=== PATIENT | female | born 1945 | race Caucasian/White ===

== ENCOUNTER 2021-07-28 02:50 | Inpatient (IN) | payer MEDICARE, SELFPAY ==
[2021-07-28] VITALS (16 sets, daily range): BP systolic 118–190; BP diastolic 68–90; PULSE 59–130; RESP 14–24; TEMP 36.4–37; O2SAT 92–97; BMI 40.4; BMI 41.1
--- NOTE | 2021-07-28 02:51 | CTR_ITS ---
PROCEDURE INFORMATION: Exam: CT Head Without Contrast Exam date and time: 07/28/2021 2:51 AM Age: 76 years old Clinical indication: Speech disturbance; Slurred speech; Additional info: Stroke TECHNIQUE: Imaging protocol: Computed tomography of the head without contrast. Radiation optimization: All CT scans at this facility use at least one of these dose optimization techniques: automated exposure control; mA and/or kV adjustment per patient size (includes targeted exams where dose is matched to clinical indication); or iterative reconstruction. Other technique: STROKE PROTOCOL was implemented. COMPARISON: No relevant prior studies available. RADIATION DOSE METRICS: Total DLP (mGy-cm): 856.76 FINDINGS: Brain: No hemorrhage. Unremarkable white matter. Calcified extra-axial lesion at paramedian lower anterior cranial fossa measures 1.3 cm transverse by 1.1 cm superior inferior by 1.8 cm AP. Cerebral ventricles: No ventriculomegaly. Paranasal sinuses: Visualized sinuses are unremarkable. No fluid levels. Mastoid air cells: Visualized mastoid air cells are well aerated. Bones/joints: No acute findings. Soft tissues: Unremarkable. CT/CT head wo con* [id number] IMPRESSION: No acute intracranial abnormality. Extra-axial lesion at lower anterior cranial fossa favored to represent meningioma; short-term follow-up in 3 months can be helpful in establishing stability. ASSESSMENT: ASPECTS ([place] Stroke Program Early CT Score) is 10. Radiation Dose CTDIVOL = (mGy): DLP = 856.76 (mGy-cm)
--- NOTE | 2021-07-28 02:52 | ECG_ITS ---
[facility] Test Date: 2021-07-28 Pat Name: Teresita Morley Department: Room: Gender: Female Explosive Ordnance Specialist: : 1945 Requested By: Hellen Tamez Order Number: [id number] Reading MD: EDUARDO WHITING Measurements Intervals [place] Rate: 70 P: 200 [place]: 214 QRS: -74 QRSD: 230 T: 91 QT: 485 QTc: 524 Interpretive Statements ELECTRONIC VENTRICULAR PACEMAKER ABNORMAL RHYTHM ECG Compared to ECG 10/22/2015 11:09:17 AV dual-paced complex(es) or rhythm no longer present Electronically Signed On 07-28-2021 21:04:37 CDT by EDUARDO WHITING [email or web address] [id number]
--- NOTE | 2021-07-28 02:55 | CTR_ITS ---
PROCEDURE INFORMATION: Exam: CT Angiography Head With Contrast, Arteriography Exam date and time: 07/28/2021 2:55 AM Age: 76 years old Clinical indication: Speech disturbance; Slurred speech; Additional info: CVA TECHNIQUE: Imaging protocol: Computed tomography angiography of the head with contrast. Exam focused on the arteries. 3D rendering (Not supervised by radiologist): MIP and/or 3D reconstructed images were created by the technologist. Radiation optimization: All CT scans at this facility use at least one of these dose optimization techniques: automated exposure control; mA and/or kV adjustment per patient size (includes targeted exams where dose is matched to clinical indication); or iterative reconstruction. Contrast material: VISI; Contrast volume: 95 ml; Contrast route: INTRAVENOUS (IV); COMPARISON: CT head wo con* [id number] 07/28/2021 2:53 AM RADIATION DOSE METRICS: Total DLP (mGy-cm): 2285.66 FINDINGS: ANTERIOR CIRCULATION: Right internal carotid artery: Mild atheromatous change right internal carotid artery. Right middle cerebral artery: Focal moderate to marked narrowing and distal M1 segment right middle cerebral artery. Right anterior cerebral artery: Unremarkable. No occlusion or significant stenosis. No aneurysm. Left internal carotid artery: Mild atheromatous change left internal carotid artery. Left middle cerebral artery: Unremarkable. No occlusion or significant stenosis. No aneurysm. Left anterior cerebral artery: Unremarkable. No occlusion or significant stenosis. No aneurysm. POSTERIOR CIRCULATION: Right vertebral artery: Unremarkable. No occlusion or significant stenosis. No aneurysm. Left vertebral artery: Unremarkable. No occlusion or significant stenosis. No aneurysm. Basilar artery: Unremarkable. No occlusion or significant stenosis. No aneurysm. Right posterior cerebral artery: Unremarkable. No occlusion or significant stenosis. No aneurysm. Left posterior cerebral artery: Unremarkable. No occlusion or significant stenosis. No aneurysm. Brain: No definite mass, mass effect, or midline shift. Cerebral ventricles: No ventriculomegaly. Bones/joints: No acute findings. Soft tissues: Unremarkable. IMPRESSION: Focal moderate to marked narrowing distal M1 segment right middle cerebral artery. PROCEDURE INFORMATION: Exam: CT Angiography Neck With Contrast Exam date and time: 07/28/2021 2:55 AM Age: 76 years old Clinical indication: Speech disturbance; Slurred speech; Additional info: CVA TECHNIQUE: Imaging protocol: Computed tomography angiography of the neck with contrast. 3D rendering (Not supervised by radiologist): MIP and/or 3D reconstructed images were created by the technologist. Radiation optimization: All CT scans at this facility use at least one of these dose optimization techniques: automated exposure control; mA and/or kV adjustment per patient size (includes targeted exams where dose is matched to clinical indication); or iterative reconstruction. Contrast material: VISI; Contrast volume: 95 ml; Contrast route: INTRAVENOUS (IV); COMPARISON: CT head wo [facility]* [id number] 07/28/2021 2:53 AM RADIATION DOSE METRICS: Total DLP (mGy-cm): 2285.66 FINDINGS: Right common carotid artery: No stenosis. No dissection or occlusion. Right internal carotid artery: No stenosis of the extracranial segment. No dissection or occlusion. Right external carotid artery: No occlusion or stenosis of the origin. Left common carotid artery: No stenosis. No dissection or occlusion. Left internal carotid artery: No stenosis of the extracranial segment. No dissection or occlusion. Left external carotid artery: No occlusion or stenosis of the origin. Right vertebral artery: No stenosis. No dissection or occlusion. Left vertebral artery: No stenosis. No dissection or occlusion. Lymph nodes: Numerous symmetric mildly prominent lymph nodes with largest at left supraclavicular region measuring up to 1.7 cm short axis Soft tissues: Normal. No significant soft tissue swelling. Bones/joints: No acute fracture. CT/CT angio headneck* [id number] IMPRESSION: No high-grade stenosis or occlusive disease in cervical vasculature. Prominent lymph nodes raising consideration of neoplastic process or systemic inflammatory process. REFERENCES: NASCET CRITERIA. The degree of internal carotid artery stenosis is based on NASCET criteria. Normal is no stenosis. Mild is less than 50% stenosis. Moderate is 50-69% stenosis. Severe is 70% to 99% stenosis. Total occlusion is no detectable patent lumen. Radiation Dose CTDIVOL = (mGy): DLP = 2285.66~2285.66 (mGy-cm)
[2021-07-28] MEDS: iodixanol 320 mg/mL 100mL Btl IV (03:07)
--- NOTE | 2021-07-28 03:07 | W.ED.NEUROSD ---
HPI - Neuro Symptoms/Deficit General: Chief Complaint: Neuro Symptoms/Deficit Stated Complaint: STROKE ALERT Time Seen by Provider: 07/28/21 02:51 Source: patient and EMS Mode of arrival: EMS Limitations: no limitations History of Present Illness: HPI Narrative: -year-old female is here with possible stroke. Per EMS patient had laid down at 2200 and was completely normal then and when she woke up 1 she is having slurred speech. She does have slurred speech. Left-sided facial droop. No weakness noted in her extremities. Spoke to multiple people on timing has been difficult. Per EMS son at the scene said last known normal was 10 PM I spoke to someone on the phone and believes she went to bed at 1030 and he was pretty sure of 1030 but he states the range could have been from 10-11. I asked patient what time she went laid down and she is not exactly sure and states that she did not look at the clock. I believe her last known normal from what I can get from family is likely 1030. Denies hitting her head denies any headache. Denies any chest pain. Associated symptoms: Deny chest pain, headache(s), nausea or vomiting Review of Systems Const: Denies: fever(s), chills, body aches or change in appetite Eyes: Denies: blurry vision or eye discomfort ENMT: Denies: throat pain or dental pain Card: Denies: chest pain Resp: Denies: dyspnea GI: Denies: abdominal pain, nausea, vomiting or diarrhea : Denies: dysuria Musc: Denies: neck pain or back pain Skin/Breast: Denies: rash Neuro: Reports: Slurred speech present; Denies: headache(s) Psych: Denies: depression Gen/Lymph: Denies: easy bruising All/Imm: Denies: urticaria NIH stroke score NIHSS: Level Of Consciousness - 1a: 0 Level Of Consciousness Questions - 1b: Both Correct Level Of Consciousness Commands - 1c: Both Correct Best Gaze - 2: Normal Visual Terry - 3: No Visual Loss Facial Palsy - 4: Partial Paralysis Motor Arm Right - 5: No Drift Motor Arm Left - 5: No Drift Motor Leg Right - 6: No Drift Motor Leg Left - 6: No Drift Limb Ataxia - 7: Absent Sensory - 8: Normal Best Language - 9: Mild/Moderate Aphasia Dysarthia - 10: Mild/Moderate Dysarthia Extinction And Inattention - 11: 0 Score: Total Score: 4 Physical Exam Const: COMMON NORMALS: no acute distress, patient oriented x3, healthy appearing and alert ORIENTATION/CONSCIOUSNESS: Yes oriented to person, Yes oriented to place and Yes oriented to time HENMT: COMMON NORMALS: normocephalic and atraumatic HEAD & SCALP: normocephalic and atraumatic Eye: COMMON NORMALS: Equal, round and reactive pupils present and EOMs intact bilaterally PUPIL: Yes Equal, round and reactive pupils present Neck/C-Spine: COMMON NORMALS: full ROM and supple Chest: COMMONS NORMALS: normal inspection of the chest and normal palpation of entire chest wall Resp: COMMON NORMALS: normal respiratory effort, No retractions, No use of accessory muscles and clear to auscultation bilaterally AUSCULTATION: clear to auscultation bilaterally Cardio: COMMON NORMALS: regular rate, regular rhythm and No murmurs present (Cardio) RATE: regular rate RHYTHM: regular rhythm GI: COMMON NORMALS: Normal to inspection, nondistended, normoactive bowel sounds present, Soft to palpation, non-tender and no masses PALPATION: Yes Soft to palpation Extremity: COMMON NORMALS: normal to inspection and full ROM Neuro: COMMON NORMALS: patient oriented x3 and moves all extremities SENSORIUM/ORIENTATION: Yes alert, Yes oriented to person, Yes oriented to place and Yes oriented to time CRANIAL NERVES: Yes CN normal except as noted SPEECH: abnormal speech Psych: COMMON NORMALS: mental status grossly normal, Normal thought process present and cooperative THOUGHT PROCESS: Normal thought process present Skin: COMMON NORMALS: no rashes or lesions noted and no wounds GENERAL SKIN EXAM: no rashes or lesions noted Course Vital Signs: Vital signs: Vital Signs Temperature 97.9 F 07/28/21 02:52 Pulse Rate 62 07/28/21 04:02 Respiratory Rate 17 07/28/21 04:02 Blood Pressure 160/74 07/28/21 04:02 Pulse Oximetry 92 07/28/21 04:02 MDM - Neuro Symptoms/Deficit MDM Narrative: Medical decision making narrative: Presents here with CVA. There were multiple different times given for last known normal EMS and told us 10 son at the house I spoke to over the phone who did witness his mother going to bedside 1030 and I believe that that is most likely the time she went to bed. Patient's out of the window for TPA. She does have an NIH of 4. Of spoke to hospitalist along with neurologist and will admit. Lab Data: Labs: Lab Results 07/28/21 07/28/21 07/28/21 Range/Units 03:10 03:10 03:10 WBC 6.1 (4.0-10.0) 10^3/ uL RBC 4.75 (4.1-5.3) 10^6/u L Hgb 14.8 (11.5-15.3) g/dL Hct 43.0 (37.0-47.0) % MCV 90.5 (81-99) fl MCH 31.2 (28.0-34.0) pg MCHC 34.4 (30.0-36.0) g/dL RDW 12.0 L (12.1-15.1) % Plt Count 163 (130-400) 10^3/c mm MPV 9.2 (7.4-10.4) fL Neut % (Auto) 53.6 % Lymph % (Auto) 30.4 % [place] % (Auto) 12.7 % Eos % (Auto) 2.1 % Baso % (Auto) 0.5 % Neut # (Auto) 3.26 (1.8-7.7) 10^3/u L Lymph # (Auto) 1.9 (0.8-4.8) 10^3/u L [place] # (Auto) 0.8 (0.2-0.9) 10^3/u L Eos # (Auto) 0.1 (0.0-0.8) 10^3/u L Baso # (Auto) 0.0 (0.0-0.1) 10^3/u L Nucleated RBC % (a uto) 0 % Nucleated RBCs # 0.0 /100WBC PT 14.20 (12.1-14.9) SECO NDS INR 1.07 (0.8-1.2) APTT 26.4 (23.9-36.7) SECO NDS Sodium 133 L (136-145) mmol/L Potassium 4.2 (3.5-5.1) mmol/L Chloride 99 (98-107) mmol/L Carbon Dioxide 25 (22-29) mmol/L Anion Gap 13.2 (5-19) BUN 6 L (8-23) mg/dL Creatinine 0.6 (0.5-0.9) mg/dL GFR Calculation Not Reportable Glucose 125 H (65-115) mg/dL POC Glucose (70-110) mg/dL Calculated Osmolal ity 275 L (285-295) mOsm/k g Calcium 9.0 (8.5-10.5) mg/dL Total Bilirubin 0.6 (0.15-1.2) mg/dL AST 23 (0-32) U/L ALT 32 (0-33) U/L Alkaline Phosphata se 105 (35-105) IU/L Total Protein 6.3 L (6.6-8.7) g/dL Albumin 3.7 (3.5-5.2) g/dL Globulin 2.6 (1.3-4.6) g/dL Urine Color (Yellow) Urine Appearance (CLEAR) Urine pH (5-7) Ur Specific Gravit y (1.005-1.030) Urine Protein (Negative) Urine Glucose (UA) (Normal) Urine Ketones (Negative) Urine Blood (Negative) Urine Nitrate (Negative) Urine Bilirubin (Negative) Prot Sulfosalicyli c Acd (Negative) Urine Urobilinogen (Negative) mg/dL Ur Leukocyte Mary [place] (Negative) 07/28/21 07/28/21 Range/Units 03:23 03:30 WBC (4.0-10.0) 10^3/ uL RBC (4.1-5.3) 10^6/u L Hgb (11.5-15.3) g/dL Hct (37.0-47.0) % MCV (81-99) fl MCH (28.0-34.0) pg MCHC (30.0-36.0) g/dL RDW (12.1-15.1) % Plt Count (130-400) 10^3/c mm MPV (7.4-10.4) fL Neut % (Auto) % Lymph % (Auto) % [place] % (Auto) % Eos % (Auto) % Baso % (Auto) % Neut # (Auto) (1.8-7.7) 10^3/u L Lymph # (Auto) (0.8-4.8) 10^3/u L [place] # (Auto) (0.2-0.9) 10^3/u L Eos # (Auto) (0.0-0.8) 10^3/u L Baso # (Auto) (0.0-0.1) 10^3/u L Nucleated RBC % (a uto) % Nucleated RBCs # /100WBC PT (12.1-14.9) SECO NDS INR (0.8-1.2) APTT (23.9-36.7) SECO NDS Sodium (136-145) mmol/L Potassium (3.5-5.1) mmol/L Chloride (98-107) mmol/L Carbon Dioxide (22-29) mmol/L Anion Gap (5-19) BUN (8-23) mg/dL Creatinine (0.5-0.9) mg/dL GFR Calculation Glucose (65-115) mg/dL POC Glucose 118 H (70-110) mg/dL Calculated Osmolal ity (285-295) mOsm/k g Calcium (8.5-10.5) mg/dL Total Bilirubin (0.15-1.2) mg/dL AST (0-32) U/L ALT (0-33) U/L Alkaline Phosphata se (35-105) IU/L Total Protein (6.6-8.7) g/dL Albumin (3.5-5.2) g/dL Globulin (1.3-4.6) g/dL Urine Color Colorless (Yellow) Urine Appearance Clear (CLEAR) Urine pH 8 H (5-7) Ur Specific Gravit y 1.005 (1.005-1.030) Urine Protein Neg (Negative) Urine Glucose (UA) Norm (Normal) Urine Ketones Negative (Negative) Urine Blood Neg (Negative) Urine Nitrate Negative (Negative) Urine Bilirubin Neg (Negative) Prot Sulfosalicyli c Acd Negative (Negative) Urine Urobilinogen Norm (Negative) mg/dL Ur Leukocyte Mary a[place] Negative (Negative) Imaging Data^: CT Head: Attestation: I personally reviewed and interpreted this imaging study as follows: Radiologist's impression: [address] [address] [address] Scan Report Signed Patient: Teresita Morley Unit [facility]: [id number] : 1945 [id number] Age/Sex: 76 / F ADM Date: 07/28/21 Loc: ER Room/Bed: Attending Dr: Ordering Provider/Ordering MD: Hellen Tamez MD Date of Service: 07/28/21 Procedure(s): CT head wo con* [id number] Accession Number(s): [id number] Report Number: [id number] PROCEDURE INFORMATION: Exam: CT Head Without Contrast Exam date and time: 07/28/2021 2:51 AM Age: 76 years old Clinical indication: Speech disturbance; Slurred speech; Additional info: Stroke TECHNIQUE: Imaging protocol: Computed tomography of the head without contrast. Radiation optimization: All CT scans at this facility use at least one of these dose optimization techniques: automated exposure control; mA and/or kV adjustment per patient size (includes targeted exams where dose is matched to clinical indication); or iterative reconstruction. Other technique: STROKE PROTOCOL was implemented. COMPARISON: No relevant prior studies available. RADIATION DOSE METRICS: Total DLP (mGy-cm): 856.76 FINDINGS: Brain: No hemorrhage. Unremarkable white matter. Calcified extra-axial lesion at paramedian lower anterior cranial fossa measures 1.3 cm transverse by 1.1 cm superior inferior by 1.8 cm AP. Cerebral ventricles: No ventriculomegaly. Paranasal sinuses: Visualized sinuses are unremarkable. No fluid levels. Mastoid air cells: Visualized mastoid air cells are well aerated. Bones/joints: No acute findings. Soft tissues: Unremarkable. CT/CT head wo con* [id number] IMPRESSION: No acute intracranial abnormality. Extra-axial lesion at lower anterior cranial fossa favored to represent meningioma; short-term follow-up in 3 months can be helpful in establishing stability. ASSESSMENT: ASPECTS ([place] Stroke Program Early CT Score) is 10. Radiation Dose CTDIVOL = (mGy): DLP = 856.76 (mGy-cm) Dictated By: Christoph Bethea MD Signed By: Christoph Bethea MD Signed Date/Time: 07/28/21314 DD/ [address]: Attestation: I personally reviewed and interpreted this imaging study as follows: Radiologist's impression: [address] [place] [id number] [address] Scan Report Signed Patient: Teresita Morley Unit #: [id number] : 1945 Age/Sex: 76 / F ADM Date: 07/28/21 Loc: ER Room/Bed: Attending Dr: Ordering Provider/Ordering MD: Hellen Tamez MD Date of Service: 07/28/21 Procedure(s): CT angio headneck* [id number] Accession Number(s): [id number] Report Number: [id number] PROCEDURE INFORMATION: Exam: CT Angiography Head With Contrast, Arteriography Exam date and time: 07/28/2021 2:55 AM Age: 76 years old Clinical indication: Speech disturbance; Slurred speech; Additional info: CVA TECHNIQUE: Imaging protocol: Computed tomography angiography of the head with contrast. Exam focused on the arteries. 3D rendering (Not supervised by radiologist): MIP and/or 3D reconstructed images were created by the technologist. Radiation optimization: All CT scans at this facility use at least one of these dose optimization techniques: automated exposure control; mA and/or kV adjustment per patient size (includes targeted exams where dose is matched to clinical indication); or iterative reconstruction. Contrast material: VISI; Contrast volume: 95 ml; Contrast route: INTRAVENOUS (IV); COMPARISON: CT head wo con* [id number] 07/28/2021 2:53 AM RADIATION DOSE METRICS: Total DLP (mGy-cm): 2285.66 FINDINGS: ANTERIOR CIRCULATION: Right internal carotid artery: Mild atheromatous change right internal carotid artery. Right middle cerebral artery: Focal moderate to marked narrowing and distal M1 segment right middle cerebral artery. Right anterior cerebral artery: Unremarkable. No occlusion or significant stenosis. No aneurysm. Left internal carotid artery: Mild atheromatous change left internal carotid artery. Left middle cerebral artery: Unremarkable. No occlusion or significant stenosis. No aneurysm. Left anterior cerebral artery: Unremarkable. No occlusion or significant stenosis. No aneurysm. POSTERIOR CIRCULATION: Right vertebral artery: Unremarkable. No occlusion or significant stenosis. No aneurysm. Left vertebral artery: Unremarkable. No occlusion or significant stenosis. No aneurysm. Basilar artery: Unremarkable. No occlusion or significant stenosis. No aneurysm. Right posterior cerebral artery: Unremarkable. No occlusion or significant stenosis. No aneurysm. Left posterior cerebral artery: Unremarkable. No occlusion or significant stenosis. No aneurysm. Brain: No definite mass, mass effect, or midline shift. Cerebral ventricles: No ventriculomegaly. Bones/joints: No acute findings. Soft tissues: Unremarkable. IMPRESSION: Focal moderate to marked narrowing distal M1 segment right middle cerebral artery. PROCEDURE INFORMATION: Exam: CT Angiography Neck With Contrast Exam date and time: 07/28/2021 2:55 AM Age: 76 years old Clinical indication: Speech disturbance; Slurred speech; Additional info: CVA TECHNIQUE: Imaging protocol: Computed tomography angiography of the neck with contrast. 3D rendering (Not supervised by radiologist): MIP and/or 3D reconstructed images were created by the technologist. Radiation optimization: All CT scans at this facility use at least one of these dose optimization techniques: automated exposure control; mA and/or kV adjustment per patient size (includes targeted exams where dose is matched to clinical indication); or iterative reconstruction. Contrast material: VISI; Contrast volume: 95 ml; Contrast route: INTRAVENOUS (IV); COMPARISON: CT head wo con* [id number] 07/28/2021 2:53 AM RADIATION DOSE METRICS: Total DLP (mGy-cm): 2285.66 FINDINGS: Right common carotid artery: No stenosis. No dissection or occlusion. Right internal carotid artery: No stenosis of the extracranial segment. No dissection or occlusion. Right external carotid artery: No occlusion or stenosis of the origin. Left common carotid artery: No stenosis. No dissection or occlusion. Left internal carotid artery: No stenosis of the extracranial segment. No dissection or occlusion. Left external carotid artery: No occlusion or stenosis of the origin. Right vertebral artery: No stenosis. No dissection or occlusion. Left vertebral artery: No stenosis. No dissection or occlusion. Lymph nodes: Numerous symmetric mildly prominent lymph nodes with largest at left supraclavicular region measuring up to 1.7 cm short axis Soft tissues: Normal. No significant soft tissue swelling. Bones/joints: No acute fracture. CT/CT angio headneck* [id number] IMPRESSION: No high-grade stenosis or occlusive disease in cervical vasculature. Prominent lymph nodes raising consideration of neoplastic process or systemic inflammatory process. REFERENCES: NASCET CRITERIA. The degree of internal carotid artery stenosis is based on NASCET criteria. Normal is no stenosis. Mild is less than 50% stenosis. Moderate is 50-69% stenosis. Severe is 70% to 99% stenosis. Total occlusion is no detectable patent lumen. Radiation Dose CTDIVOL = (mGy): DLP = 2285.66 2285.66 (mGy-cm) Dictated By: Christoph Bethea MD Signed By: Christoph Bethea MD Signed Date/Time: 07/28/21324 DD/ 3 EKG Data^: EKG 1: Attestation: I personally reviewed and interpreted this EKG as follows: EKG interpretation date: 07/28/21 EKG interpretation time: 03:14 Interpretation: paced rhythm hr [address] or t wave abnormalities qrs 230 qtc 505 Discharge Plan Discharge Patient Disposition: Admitted As Inpatient Clinical Impression: Cerebrovascular accident Qualifiers: CVA mechanism: unspecified Qualified Code(s): I63.9 - Cerebral infarction, unspecified Condition: Stable Coding Level of Care Code ED Occupational Health Nurse Manager for Chg Fwd Exam Comprehensive
[2021-07-28 03:16] LABS: Basophils % 0.5 %; Eosinophils # 0.1 10^3/uL (0.0-0.8); Eosinophils % 2.1 %; Hemoglobin 14.8 g/dL (11.5-15.3); Lymphocytes # 1.9 10^3/uL (0.8-4.8); Lymphocytes % 30.4 %; Mean Corpuscular HGB Conc 34.4 g/dL (30.0-36.0); Mean Corpuscular Hemoglobin 31.2 pg (28.0-34.0); Mean Corpuscular Volume 90.5 fl (81-99); Mean Platelet Volume 9.2 fL (7.4-10.4); Monocytes # 0.8 10^3/uL (0.2-0.9); Monocytes % 12.7 %; Neutrophils # 3.26 10^3/uL (1.8-7.7); Neutrophils % 53.6 %; Nucleated Red Blood Cells % 0 %; Platelet Count 163 10^3/cmm (130-400); Red Blood Count 4.75 10^6/uL (4.1-5.3); White Blood Count 6.1 10^3/uL (4.0-10.0)
[2021-07-28 03:26] LABS: Glucose Point of Care 118 mg/dL (70-110)
[2021-07-28 03:28] LABS: INR 1.07 (0.8-1.2)
[2021-07-28 03:29] LABS: Partial Thromboplastin Time 26.4 SECONDS (23.9-36.7)
[2021-07-28 03:33] LABS: Alanine Aminotransferase 32 U/L (0-33); Albumin Level 3.7 g/dL (3.5-5.2); Alkaline Phosphatase 105 IU/L (35-105); Anion Gap 13.2 (5-19); Aspartate Amino Transferase 23 U/L (0-32); Blood Urea Nitrogen 6 mg/dL (8-23); Carbon Dioxide 25 mmol/L (22-29); Chloride 99 mmol/L (98-107); Globulin 2.6 g/dL (1.3-4.6); Glucose 125 mg/dL (65-115); Osmolality Calculated 275 mOsm/kg (285-295); Potassium 4.2 mmol/L (3.5-5.1); Sodium 133 mmol/L (136-145); Total Bilirubin 0.6 mg/dL (0.15-1.2); Total Protein 6.3 g/dL (6.6-8.7)
[2021-07-28 03:34] LABS: Add Urine Microscopic? NO; Charge for UA Resulting for Rev
[2021-07-28 03:41] LABS: Bilirubin Urine Neg (Negative); Blood Urine Neg (Negative); Glucose Urine UA Norm (Normal); Ketones Urine Negative (Negative); Leukocyte Esterase Urine Negative (Negative); Nitrate Urine Negative (Negative); Protein Urine Neg (Negative); Specific Gravity, Urine 1.005 (1.005-1.030); Urine Appearance Clear (CLEAR); Urine Color Colorless (Yellow); Urobilinogen Urine Norm (Negative); pH Urine 8 (5-7)
[2021-07-28 03:42] LABS: Sulfosalicylic Acid Urine Negative (Negative)
[2021-07-28] MEDS: aspirin 81 mg Chew Tablet 324 MG PO (03:43)
[2021-07-28] MEDS: sodium chloride 0.9% 1,000 ML 999 ML IV (03:43)
--- NOTE | 2021-07-28 04:20 | P.HP_ITS ---
Providers/Chief Complaint Admitting Physician: Erma Hackett MD Primary Care Provider: Dr John Espinoza Chief Complaint: STROKE ALERT History of Present Illness Terestia Morley is a 76 year old female who presented to the emergency room with chief complaint of slurred speech, word finding difficulties and left-sided facial droop. She had been last known at baseline sometime between 10 and 11:00 in the evening, most likely around 1030 when she went to bed. Something awakened her from sleep and she was having difficulty with her words and was not speaking clearly. She was also noted to have a left-sided facial droop. She was brought in by EMS. On arrival here she was outside of the window for TPA. Initial NIH score was 4. CT of the head did not show acute bleed. CTA of the head neck was done and did not show any intervenable obstructive process. She continued to have the same symptoms in the emergency room without any improvement however at the time of my evaluation, her speech was starting to improve and was easy to understand. She still had a little bit of a left-sided facial droop. In talking with her she has had multiple episodes the past week or so of waking up at night and things not being right. She had a bit of a headache and some dizziness a couple of nights ago as well as worsening difficulty swallowing. She describes increased difficulty swallowing over the last month or 2 but some of that is attributable to severe reflux. She frequently has headaches. She does have known hypertension and is on antihypertensive medications. It sounds like she has a history of atrial fibrillation with pacemaker as she reports that she is on Rythmol. She does not, however, recognize the term atrial fibrillation. She denies any history of previous strokes or coronary artery disease. She describes borderline diabetes with low blood sugars and thyroid problems. She also has sleep apnea for which she is on BiPAP and has not been using it lately due to concerns over recall. She follows with a specialist in [place]. She reports having had a stress test about a month ago that was unremarkable. She does not chronically take aspirin because she often chooses not to due to her stomach issues. She does not smoke. ED provider discussed the case with neurology who agreed to see her in consultation. She is being admitted for further evaluation and treatment. Of note she has an allergy to statins, describes being tried on multiple diffe rent statins with varied reactions from headaches to body aches and the like regardless of dosing. Review of Systems Narrative: Cardiology [place] Dr [place] Electrophysiology [place] Dr [place] blood sugar doctor [place] Recently referred for something on stomach that might need biopsied (seen on plain xray from description), but told not needed at referral appointment Const: Denies: fever(s) or chills Eyes: Denies: change in vision ENMT: Denies: throat pain or nasal congestion Card: Reports: palpitations (When she awakened from sleep) and other (stress test in [place] normal within last 1-2 months); Denies: chest pain, edema or syncope Resp: Denies: dyspnea, productive cough or non-productive cough GI: Reports: abdominal pain (had some study by pcp, referred for a biospy but told not necessary ), nausea, dysphagia and heartburn; Denies: vomiting, diarrhea, constipation, hematochezia or melena : Reports: urinary incontinence; Denies: difficulty voiding Musc: Reports: extremity pain; Denies: joint swelling or joint redness Skin/Breast: Denies: rash or pruritus Neuro: Reports: headache(s), dizziness, confusion, Slurred speech present and difficulty communicating thoughts; Denies: numbness in extremities, weakness in extremities, sensory changes or difficulty walking Psych: Denies: anxiety or depression Gen/Lymph: Denies: easy bruising or easy bleeding Medications/Allergies Home Medications Medication Instructions Recorded Confirmed Last Taken Type BP pill DAILY@12 07/28/21 Unknown History aspirin [Aspirin Low Dose] 81 mg PO DAILY 07/28/21 Unknown History famotidine [Pepcid] 20 mg PO BID 07/28/21 Unknown History furosemide [Lasix] 20 mg PO DAILY 07/28/21 Unknown History levothyroxine 175 mcg PO DAILY 07/28/21 Unknown History metoprolol tartrate 50 mg PO BID 07/28/21 Unknown History propafenone [Rythmol] 225 mg PO BID 07/28/21 Unknown History Allergies Allergy/AdvReac Type Severity Reaction Status Date / Time atorvastatin Allergy Unknown Verified 07/28/21 03:45 Penicillins Allergy Unknown Verified 07/28/21 03:08 Additional Medication Information Patient reports that she is on Rythmol twice per day which she gets from an assisted program, metoprolol twice a day, levothyroxine daily, Pepcid bid, lasix daily, another bp pill daily and irregular aspirin therapy PFSH Acute PFSH: Medical History (Updated 07/28/21 @ 07:25 by Erma Hackett MD) Arrhythmia on rythmol and has pacemaker but does not recognize terms atrial fibrillation or atrial flutter Body mass index (BMI) of 40.1 to 44.9 in adult Borderline diabetes with episodes of hypoglycemia 4 para 3 with 1 miscarriage Hyperlipidemia Hypertension Hypothyroidism Pacemaker Sleep apnea Surgical History (Updated 07/28/21 @ 07:16 by Erma Hackett MD) History of appendectomy History of back surgery History of cholecystectomy History of hysterectomy Family History (Updated 07/28/21 @ 07:20 by Erma Hackett MD) Other Hypertension Denies family history of CAD (coronary artery disease) Stroke Social History (Updated 07/28/21 @ 07:17 by Erma Hackett MD) Smoking and tobacco status: never smoked Alcohol intake: never Substance/Drug Use: never Household members: spouse Marital status: Marital status details: 57 years Vitals/I&O/Wt Last Vital Signs Temp 97.9 F 07/28/21 02:52 Pulse 62 07/28/21 04:02 Resp 17 07/28/21 04:02 BP 160/74 07/28/21 04:02 Pulse Ox 92 07/28/21 04:02 Weight last 48 hrs Weight 113.761 kg Physical Exam Narrative: EXAM NARRATIVE: Constitutional: Awake and alert, cooperative HEENT: Left-sided facial droop persist though not as prominent as described by ER provider, extraocular movements are intact, pupils are equally reactive, no gross visual field defects, nasopharynx is clear, there is reddish discoloration on the tip of her nose and a mole on the left nares, tongue protrusion is midline but slow, dry mucous membranes Neck: Large but supple Respiratory: Clear to auscultation bilaterally Cardiovascular: Regular rhythm, distant heart sounds, no JVD Abdomen: Soft, nontender, positive bowel sounds : Harris catheter noted Extremities: No pitting edema Skin: Dry skin Neuro: Speech is predominantly understandable although has to pause at times to think about the words that she is trying to recall, weak shoulder shrug bilaterally, handgrip is equal, strength is equal at both feet, toes are equivocal Psych: Calm, normal affect Urinary Catheter Management^: Harris: Cath Placed During This Visit: yes Urinary Catheter Date of Insertion: 07/28/21 Urinary Catheter Time of Insertion: 03:33 Data : 07/28/21 03:10 07/28/21 03:10 Other data: Laboratory Results WBC 6.1 10^3/uL (4.0-10.0) 07/28/21 03:10 RBC 4.75 10^6/uL (4.1-5.3) 07/28/21 03:10 Hgb 14.8 g/dL (11.5-15.3) 07/28/21 03:10 Hct 43.0 % (37.0-47.0) 07/28/21 03:10 MCV 90.5 fl (81-99) 07/28/21 03:10 MCH 31.2 pg (28.0-34.0) 07/28/21 03:10 MCHC 34.4 g/dL (30.0-36.0) 07/28/21 03:10 RDW 12.0 % (12.1-15.1) L 07/28/21 03:10 Plt Count 163 10^3/cmm (130-400) 07/28/21 03:10 MPV 9.2 fL (7.4-10.4) 07/28/21 03:10 Neut % (Auto) 53.6 % 07/28/21 03:10 Lymph % (Auto) 30.4 % 07/28/21 03:10 [place] % (Auto) 12.7 % 07/28/21 03:10 Eos % (Auto) 2.1 % 07/28/21 03:10 Baso % (Auto) 0.5 % 07/28/21 03:10 Neut # (Auto) 3.26 10^3/uL (1.8-7.7) 07/28/21 03:10 Lymph # (Auto) 1.9 10^3/uL (0.8-4.8) 07/28/21 03:10 [place] # (Auto) 0.8 10^3/uL (0.2-0.9) 07/28/21 03:10 Eos # (Auto) 0.1 10^3/uL (0.0-0.8) 07/28/21 03:10 Baso # (Auto) 0.0 10^3/uL (0.0-0.1) 07/28/21 03:10 Nucleated RBC % (auto) 0 % 07/28/21 03:10 Nucleated RBCs # 0.0 /100WBC 07/28/21 03:10 PT 14.20 SECONDS (12.1-14.9) 07/28/21 03:10 INR 1.07 (0.8-1.2) 07/28/21 03:10 APTT 26.4 SECONDS (23.9-36.7) 07/28/21 03:10 Sodium 133 mmol/L (136-145) L 07/28/21 03:10 Potassium 4.2 mmol/L (3.5-5.1) 07/28/21 03:10 Chloride 99 mmol/L (98-107) 07/28/21 03:10 Carbon Dioxide 25 mmol/L (22-29) 07/28/21 03:10 Anion Gap 13.2 (5-19) 07/28/21 03:10 BUN 6 mg/dL (8-23) L 07/28/21 03:10 Creatinine 0.6 mg/dL (0.5-0.9) 07/28/21 03:10 GFR Calculation Not Reportable 07/28/21 03:10 Glucose 125 mg/dL (65-115) H 07/28/21 03:10 POC Glucose 118 mg/dL (70-110) H 07/28/21 03:23 Calculated Osmolality 275 mOsm/kg (285-295) L 07/28/21 03:10 Calcium 9.0 mg/dL (8.5-10.5) 07/28/21 03:10 Total Bilirubin 0.6 mg/dL (0.15-1.2) 07/28/21 03:10 AST 23 U/L (0-32) 07/28/21 03:10 ALT 32 U/L (0-33) 07/28/21 03:10 Alkaline Phosphatase 105 IU/L (35-105) 07/28/21 03:10 Total Protein 6.3 g/dL (6.6-8.7) L 07/28/21 03:10 Albumin 3.7 g/dL (3.5-5.2) 07/28/21 03:10 Globulin 2.6 g/dL (1.3-4.6) 07/28/21 03:10 Urine Color Colorless (Yellow) 07/28/21 03:30 Urine Appearance Clear (CLEAR) 07/28/21 03:30 Urine pH 8 (5-7) H 07/28/21 03:30 Ur Specific [place] 1.005 (1.005-1.030) 07/28/21 03:30 Urine Protein Neg (Negative) 07/28/21 03:30 Urine Glucose (UA) Norm (Normal) 07/28/21 03:30 Urine Ketones Negative (Negative) 07/28/21 03:30 Urine Blood Neg (Negative) 07/28/21 03:30 Urine Nitrate Negative (Negative) 07/28/21 03:30 Urine Bilirubin Neg (Negative) 07/28/21 03:30 Prot Sulfosalicylic Acd Negative (Negative) 07/28/21 03:30 Urine Urobilinogen Norm mg/dL (Negative) 07/28/21 03:30 Ur Leukocyte Esterase Negative (Negative) 07/28/21 03:[address] 07/28/21 02:51 IMPRESSION: No acute intracranial abnormality. Extra-axial lesion at lower anterior cranial fossa favored to represent meningioma; short-term follow-up in 3 months can be helpful in establishing stability. ASSESSMENT: ASPECTS ([place] Stroke Program Early CT Score) is 10. Radiation Dose CTDIVOL = (mGy): DLP = 856.76 (mGy-cm) Head/Neck CTA 07/28/21 02:55 IMPRESSION: No high-grade stenosis or occlusive disease in cervical vasculature. Prominent lymph nodes raising consideration of neoplastic process or systemic inflammatory process. REFERENCES: NASCET CRITERIA. The degree of internal carotid artery stenosis is based on NASCET criteria. Normal is no stenosis. Mild is less than 50% stenosis. Moderate is 50-69% stenosis. Severe is 70% to 99% stenosis. Total occlusion is no detectable patent lumen. Radiation Dose CTDIVOL = (mGy): DLP = 2285.66~2285.66 (mGy-cm) A&P Assessment and plan (1) Cerebrovascular accident: Associated with dysarthria, word finding difficulties and left-sided facial droop. Initial NIH score of 4. Presented outside of window for TPA. Status: Acute Qualifiers: CVA mechanism: unspecified Qualified Code(s): I63.9 - Cerebral infarction, unspecified (2) Arrhythmia: Based on the fact that she is chronically on Rythmol and beta-blockade, suspect that she has a history of atrial fibrillation/flutter. She had syncopal episodes that led to pacemaker placement and historically sounds like a tachybradycardia syndrome. Not on chronic anticoagulation and does not describe being on anticoagulation previously however. Follows with cardiology in [place] Status: Chronic Qualifiers: Arrhythmia type: unspecified cardiac arrhythmia Qualified Code(s): I49.9 - Cardiac arrhythmia, unspecified (3) Pacemaker at end of battery life: According to patient, paced rhythm noted on telemetry and EKG Status: Chronic (4) Sleep apnea: Chronically on BiPAP at home but is not consistent with using it particularly of late with recalls and not knowing what to do with her own device. Does make me wonder if that is not contributing to her waking up frequently at night with issues lately. Status: Chronic Qualifiers: Sleep apnea type: obstructive Qualified Code(s): G47.33 - Obstructive sleep apnea (adult) (pediatric) (5) Hypertension: Currently with elevated blood pressures in the setting of acute cerebrovascular event where we are allowing permissive hypertension Status: Chronic Qualifiers: Hypertension type: essential hypertension Qualified Code(s): I10 - Essential (primary) hypertension (6) Hyperlipidemia: Reports intolerance to statin therapy Status: Chronic Qualifiers: Hyperlipidemia type: unspecified Qualified Code(s): E78.5 - Hyperlipidemia, unspecified (7) Borderline diabetes: By her description associated with intermittent episodes of hypoglycemia Status: Chronic (8) Hypothyroidism: Chronically on levothyroxine replacement Status: Chronic Qualifiers: Hypothyroidism type: unspecified Qualified Code(s): E03.9 - Hypothyroidism, unspecified (9) Body mass index (BMI) of 40.1 to 44.9 in adult: Status: Chronic Additional A&P Information Inpatient admission Serial neuro exams Not a candidate for MRI secondary to pacemaker Telemetry monitoring See if we can get information about her pacemaker particularly the report that it is at end of battery life or near that Request records from primary care provider and/or technology integration specialist to get a bit more accurate information in terms of medication and past history in particular as relates to arrhythmia Echocardiogram Aspirin and Plavix Permissive hypertension for now We will continue half usual dose of beta-blockade Continue a lower dose of rythmol until can clarify dosing Hold Lasix and an unknown blood pressure pill currently Check lipid panel and A1c PT, OT, speech therapy BiPAP with sleep Monitor blood sugars Continue home levothyroxine Supportive care otherwise Consultants: Neurology Pending/ordered tests/procedures to follow: Lipid panel, A1c, echocardiogram Lines/tubes: Harris catheter was placed in the emergency room, will remove pending PT evaluation later today DVT prophylaxis: Lovenox Plans, findings and concerns discussed with patient and she was given an opportunity to ask questions. Anticipated Disposition: Home, plus or minus outpatient or home health therapies depending on clinical course Code Status: Full code Attestations Medical Necessity Statement*: Anticipated stay greater than two midnights in a patient presenting with acute neurological symptoms. She describes intermittent less prolonged symptoms lately. She presented outside of window tonight for TPA. After a couple of hours she has started to show some improvement but continues to have word finding difficulties and difficulty swallowing. Plans are as noted above. She has not had previous cerebrovascular event. Coding Level of Care Code Acute Casino Host for Leigha Nolen Diagnoses Cerebrovascular accident I63.9 CVA mechanism: unspecified Arrhythmia I49.9 Arrhythmia type: unspecified cardiac arrhythmia Pacemaker at end of battery life Z45.010 Sleep apnea G47.33 Sleep apnea type: obstructive Hypertension I10 Hypertension type: essential hypertension Hyperlipidemia E78.5 Hyperlipidemia type: unspecified Borderline diabetes R73.03 Hypothyroidism E03.9 Hypothyroidism type: unspecified Body mass index (BMI) of 40.1 to 44.9 in adult Z68.41
--- NOTE | 2021-07-28 06:22 | PC.NURSE ---
I reported low pulse 59 to nurse
[2021-07-28 06:55] LABS: Glucose Point of Care 94 mg/dL (70-110)
--- NOTE | 2021-07-28 08:59 | PC.CHAP ---
Pastoral Care Encounter/Spiritual Assessment Type of Contact [] Declined pond supervisor visit [] Patient/Family/Request visit [] Outpatient visit [] Follow-up visit [] Physician referral [] Code/Alert [x] Routine visit [] Staff referral [] Actively dying [] Patient sleeping [] Family support [] [] Out of room [] Palliative care [] [] Receiving care in room [] Pre-surgical visit [] Trauma [] Long length of stay [] ICU visit [] Other: Relational/Emotional Strength [x] Patient feels connected with others/family/visitors/staff [] Distress [] Loneliness/isolation [] Abandonment Spirituality of Patient [x Person of Shakira [] Attends Spiritism of their Shakira [x] Believes in Prayer [] Reads Bible or Episcopal materials [] There are Spiritual issues to be addressed Director Marketing Communications Interventions [x] Prayer [x] Active listening [x] Non-anxious presence [] Spiritual/emotional support [] Crisis/trauma care [] Spiritual counseling [] Bereavement support [] Provided bereavement packet [] Provided Bible/devotional materials [] Provided toy/stuffed animal, coloring book to patient or family member [] Provided Communion [] Anointing/[place] [] Salvation [] Completed spiritual assessment [] Other: Impact on Illness or Injury [] Angry [] Fearful [] Anxious [] Often cries [] Exhaustion [] Unable to work [] Unable to attend scientologist [] Unable to walk/stand [] Unable to read [] Unable to drive [] Unable to eat/drink [] Unable to sleep [] Unable to be with family [] Patient intubated [] Other: Summary patient feeling much better today and talking better Time spent with patient 15 min
[2021-07-28] MEDS: famotidine 20 mg Tablet PO ×2 (10:26→17:19)
[2021-07-28] MEDS: clopidogrel 75 mg Tablet PO (10:27)
[2021-07-28] MEDS: propafenone 150 mg Tablet PO ×2 (10:27→22:10)
[2021-07-28] MEDS: metoprolol tartrate 25 mg Tablet PO ×2 (10:27→22:10)
[2021-07-28] MEDS: fenofibrate 145 mg Tablet PO (10:27)
[2021-07-28] MEDS: enoxaparin 40 mg/0.4 mL Syringe SUBCUT (10:27)
[2021-07-28] MEDS: levothyroxine 175 mcg Tablet PO (10:27)
[2021-07-28 12:05] LABS: Glucose Point of Care 180 mg/dL (70-110)
--- NOTE | 2021-07-28 13:53 | PC.OT ---
OT EVALUATION ORDERS RECEIVED. OT SCREEN COMPLETED. PATIENT DEMONSTRATES NO DEFICITS IN ADL PERFORMANCE, UE WEAKNESS OR FURTHER NEED FOR SKILLED OT.
--- NOTE | 2021-07-28 14:11 | P.PN_ITS ---
Subjective Subjective: Interval history: She feels she is doing better today in terms of her speech. Reports has had some difficulty swallowing her pills for about a week. Denies overt choking or shortness of breath. But had some associated cough. Vitals/I&O/Wt Last Vital Signs Temp 98.4 F 07/28/21 11:12 Pulse 60 07/28/21 11:12 Resp 16 07/28/21 11:12 BP 118/68 07/28/21 11:12 Pulse Ox 95 07/28/21 11:12 07/27/21 07/28/21 07/28/21 22:59 06:59 14:59 Intake Total 1000 / 1000 180 / 180 Output Total 1800 / 1800 Balance 1000 / 1000 -1620 / -1620 Weight last 48 hrs Weight 112.037 kg Weight 113.761 kg Physical Exam Const: COMMON NORMALS: no acute distress and patient oriented x3 OTHER: Awake, alert, pleasant, conversant. HENMT: COMMON NORMALS: oropharynx normal Neck/C-Spine: COMMON NORMALS: no meningeal signs and no JVD Resp: COMMON NORMALS: normal respiratory effort and clear to auscultation bilaterally AUSCULTATION: clear to auscultation bilaterally Cardio: COMMON NORMALS: no JVD, regular rhythm, S1 normal heart sound present, S2 normal heart sound present and No murmurs present (Cardio) RHYTHM: regular rhythm HEART SOUNDS: S1 normal heart sound present and S2 normal heart sound present GI: COMMON NORMALS: Normal to inspection, nondistended, normoactive bowel sounds present, Soft to palpation and non-tender PALPATION: Yes Soft to palpation Extremity: COMMON NORMALS: no joint enlargement and no pedal edema Neuro: COMMON NORMALS: patient oriented x3 and moves all extremities MENINGEAL SIGNS: Yes no meningeal signs COORDINATION/BALANCE: [id number] test normal (although slow) SPEECH: abnormal speech Details: slurred (Minimal if any dysarthria.) and expressive aphasia (minimal aphasia) SENSORY EXAM: Yes Normal double simultaneous stimulation for sensation; No sensory level loss detected MOTOR EXAM: 5/5 motor strength present throughout and Pronator motor function not present COORDINATION: [id number] test normal (although slow) OTHER: No difficulty tracking. No visual field deficits to confrontation. Minimal left-sided facial droop. Skin: COMMON NORMALS: no rashes or lesions noted GENERAL SKIN EXAM: no rashes or lesions noted Urinary Catheter Management^: Harris: Cath Placed During This Visit: yes Reason for Continuing Indwelling Catheter: Acute Urinary Retention or Obstruction Urinary Catheter Date of Insertion: 07/28/21 Urinary Catheter Time of Insertion: 03:33 Data : 07/28/21 03:10 07/28/21 03:10 A&P Assessment and plan (1) Cerebrovascular accident: With improving symptoms. Currently on aspirin, Plavix. Was going to add statin, but appears she is it listed as an allergy. Will need to confirm what kind of allergy it is. And w intolerance if would be willing to try again at lower intensity. Continue monitoring on telemetry. TTE ordered. ST assessment. Does report some symptoms over the past week of difficulty swallowing her pills. Some cough. Will assess MBS. Associated with dysarthria, word finding difficulties and left-sided facial droop. Presented outside of window for TPA. Status: Acute Qualifiers: CVA mechanism: unspecified Qualified Code(s): I63.9 - Cerebral infarction, unspecified (2) Arrhythmia: Possible atrial fibrillation/flutter given he is on propafenone, BB. Follows with dr Elizondo in [place]. Trying to reach his office. records had been requested. Hx syncopal episodes that led to pacemaker placement and historically sounds like a tachybradycardia syndrome. Not on chronic anticoagulation and does not describe being on anticoagulation previously however. Status: Chronic Qualifiers: Arrhythmia type: unspecified cardiac arrhythmia Qualified Code(s): I49.9 - Cardiac arrhythmia, unspecified (3) Pacemaker at end of battery life: According to patient, paced rhythm noted on telemetry and EKG Status: Chronic (4) Sleep apnea: Chronically on BiPAP at home but is not consistent with using it particularly of late with recalls and not knowing what to do with her own device. Does make me wonder if that is not contributing to her waking up frequently at night with issues lately. Status: Chronic Qualifiers: Sleep apnea type: obstructive Qualified Code(s): G47.33 - Obstructive sleep apnea (adult) (pediatric) (5) Hypertension: BP improved spontaneously/w BB Status: Chronic Qualifiers: Hypertension type: essential hypertension Qualified Code(s): I10 - Essential (primary) hypertension (6) Hyperlipidemia: Reports intolerance to statin therapy Status: Chronic Qualifiers: Hyperlipidemia type: unspecified Qualified Code(s): E78.5 - Hyperlipidemia, unspecified (7) Borderline diabetes: By her description associated with intermittent episodes of hypoglycemia Status: Chronic (8) Hypothyroidism: Continue levothyroxine replacement Status: Chronic Qualifiers: Hypothyroidism type: unspecified Qualified Code(s): E03.9 - Hypothyroidism, unspecified (9) Body mass index (BMI) of 40.1 to 44.9 in adult: Status: Chronic Attestations Medical Necessity Statement*: Continue assessment and management following acute CVA. Coding Level of Care Code Acute Fourth Officer for Chg Fwd Diagnoses Cerebrovascular accident I63.9 CVA mechanism: unspecified Arrhythmia I49.9 Arrhythmia type: unspecified cardiac arrhythmia Pacemaker at end of battery life Z45.010 Sleep apnea G47.33 Sleep apnea type: obstructive Hypertension I10 Hypertension type: essential hypertension Hyperlipidemia E78.5 Hyperlipidemia type: unspecified Borderline diabetes R73.03 Hypothyroidism E03.9 Hypothyroidism type: unspecified Body mass index (BMI) of 40.1 to 44.9 in adult Z68.41
[2021-07-28 17:07] LABS: Glucose Point of Care 107 mg/dL (70-110)
--- NOTE | 2021-07-28 19:14 | P.PNCC_ITS ---
Stroke Alert Activation ED Arrival Date: 07/28/21 ED Arrival Time: 02:50 ED Physican at Bedside: 02:51 Last Known Normal/at Baseline: 3-4 hours ago Other Last Known Well Infomation: Stroke team was activated at 2:39 AM. I called the emergency department and talked with Dr. Tamez, who took a history from EMS as the patient was still in route. She was picked up from [place] and it was known that she woke up with her a mild deficit of left facial weakness and slurred speech without gait involvement and with time last known well around 10 PM. We were already passed the 4-1/2-hour window but agreed to talk with the family and pin down the last known well. EMS indicated that her son was on the scene and thought she was normal at [address] Tamez spoke with a family member by phone and that person thought that the patient went to bed at 1030 but admitted it could have been sometime between 10 and 11. The patient herself did not know what time she went to bed. Dr. Tamez and I communicated about this multiple times over the course of the following hour until her CT angiogram was completed and we agreed that her NIH stroke scale score was low (somewhere between 2 and 4) and that the time of onset probably exceeded 4-1/2 hours. She was not a candidate for thrombectomy as she had a distal clot in the right middle cerebral artery distribution. I asked him to give her high-volume IV fluids, antiplatelet therapy and admit for stroke. Stroke Alert Activated by: [employer] [facility] Stroke Alert Activation Time: 02:39 Stroke MD @ Bedside Time: 02:39 NIH Stroke Scale Time: 02:39 NIH stroke score NIHSS: Level Of Consciousness - 1a: 0 Level Of Consciousness Questions - 1b: Both Correct Level Of Consciousness Commands - 1c: Both Correct Best Gaze - 2: Normal Visual Terry - 3: No Visual Loss Facial Palsy - 4: Minor Paralysis Motor Arm Right - 5: No Drift Motor Arm Left - 5: No Drift Motor Leg Right - 6: Drift (Dr. Tamez described bilateral lower extremity dysfunction related to arthritis.) Motor Leg Left - 6: Drift Limb Ataxia - 7: Absent Sensory - 8: Normal Best Language - 9: No Aphasia Dysarthia - 10: Mild/Moderate Dysarthia Extinction And Inattention - 11: 0 Score: Total Score: 4 Stroke Alert Data/Treatment tPA Contraindication: tPA Contraindication: Treatment not indcated and Medical contraindication tPA Admin Prior to Arrival: No Patient & Family Educated on: Treament Plan Standardized Stroke Orders Used: Yes Critical Care Time Critical Care Time: less than 30 mins A&P Assessment and plan (1) Right middle cerebral artery stroke: This patient presented with a low NIH stroke scale score primarily involving dysarthria and trace of left facial weakness. Although her score of 4 reflects bilateral leg weakness it was Dr. Tamez's impression that her leg dysfunction was arthritic rather than stroke related which would fit with her right middle cerebral artery distal clot. tPA was not indicated as time of onset was unclear and her stroke scale score was low. We communicated about this 3 separate times as he acquired more information from the family and talk to different people about their opinion and as the CAT scan was being completed and CTA. She is not a candidate for thrombolysis due to her low stroke scale score and distal occlusion. Cardiac source needs to be ruled out. She should be admitted and treated with IV fluids to minimize her deficit and I will be glad to see her if needed. Status: Acute Coding Level of Care Code Acute Bilingual Executive Assistant for Leigha Nolen Diagnoses Right middle cerebral artery stroke I63.511
[2021-07-28 20:40] LABS: Glucose Point of Care 130 mg/dL (70-110)
--- NOTE | 2021-07-28 21:18 | PC.RESP ---
Pt wears bipap @ home, RT went by to check on pt, pt refuses hospital bipap att. No distress is noted, pt resting on room air, SAT 94%. Will call if needed
[2021-07-29] VITALS (7 sets, daily range): BP systolic 133–175; BP diastolic 71–108; PULSE 61–66; RESP 16–19; TEMP 36.4–36.7; O2SAT 94–97
[2021-07-29 03:19] LABS: Basophils % 0.5 %; Eosinophils % 0.2 %; Hematocrit 41.2 % (37.0-47.0); Lymphocytes # 2.4 10^3/uL (0.8-4.8); Lymphocytes % 37.7 %; Mean Corpuscular Hemoglobin 31.2 pg (28.0-34.0); Mean Corpuscular Volume 91.8 fl (81-99); Mean Platelet Volume 9.3 fL (7.4-10.4); Monocytes # 0.9 10^3/uL (0.2-0.9); Monocytes % 14.1 %; Neutrophils # 2.94 10^3/uL (1.8-7.7); Nucleated Red Blood Cells % 0 %; Platelet Count 168 10^3/cmm (130-400); Red Blood Count 4.49 10^6/uL (4.1-5.3); Red Cell Distribution Width 12.2 % (12.1-15.1); White Blood Count 6.2 10^3/uL (4.0-10.0)
[2021-07-29 03:42] LABS: Estmated Average Glucose 114; Hemoglobin A1C 5.6 % (4.0-6.0)
[2021-07-29 03:44] LABS: Chol HDL Ratio 5.29 mg/dL (0.0-4.40); Cholesterol 185 mg/dL (0-200); HDL Cholesterol 35 mg/dL (60-100); LDL Cholesterol Calculated 123 mg/dL (50-129); LDL HDL Ratio 3.51 RATIO (0.00-3.22); Triglycerides 133 mg/dL (0-150)
[2021-07-29 03:49] LABS: Anion Gap 12.9 (5-19); Blood Urea Nitrogen 8 mg/dL (8-23); Calcium 9.1 mg/dL (8.5-10.5); Carbon Dioxide 25 mmol/L (22-29); Chloride 101 mmol/L (98-107); Glucose 103 mg/dL (65-115); Magnesium 1.9 mg/dL (1.7-2.3); Osmolality Calculated 279 mOsm/kg (285-295); Phosphorus 3.6 mg/dL (2.5-4.5); Potassium 3.9 mmol/L (3.5-5.1); Sodium 135 mmol/L (136-145)
--- NOTE | 2021-07-29 06:00 | USCV_ITS ---
Teresita Morley Age: 76 Gender: F : 1945 Exam Date: 07/29/2021 06:36 Ordering Phys: Erma Hackett MD Technologist: Tamara Briceno [place] [facility] [place]OKE BP: 150 / 77 HR: 61 Rhythm: Sinus Technical Quality: Technically difficult study MEASUREMENTS (Male / Female) Normal Values 2D ECHO LV Diastolic Diameter PLAX 4.6 cm 4.2 - 5.9 / 3.9 - 5.3 cm LV Systolic Diameter PLAX 3.2 cm IVS Diastolic Thickness 1.5 cm 0.6 - 1.0 / 0.6 - 0.9 cm IVS Systolic Thickness 2.0 cm LVPW Diastolic Thickness 1.0 cm 0.6 - 1.0 / 0.6 - 0.9 cm LVPW Systolic Thickness 1.6 cm LVOT Diameter 2.0 cm LV Ejection Fraction 2D Teich 57.3 % LV Ejection Fraction MOD 2C 43.2 % LV Ejection Fraction 2C AL 43.2 % LA Diameter 2.9 cm LA Width 2.7 cm LA Height 4.4 cm RA Width 2.8 cm RA Height 5.1 cm Aorta at Sinotubular Diameter 2.8 cm M-MODE Aortic Annulus Diameter 2.8 cm LA Ao Ratio MM 1.1 DOPPLER AV Peak Velocity 93.0 cm/s LVOT Peak Velocity 71.0 cm/s AV Area Cont Eq vti 2.4 cm squared AV Area Cont Eq pk 2.4 cm squared MV Area PHT 4.8 cm squared MV E' Velocity 50.5 cm/s Mitral E to MV E' Ratio 11.3 Mitral E to LV E' Lateral Ratio 14.0 Mitral E to LV E' Septal Ratio 9.5 TR Peak Velocity 233.9 cm/s TR Peak Gradient 21.9 mmHg TR Mean Velocity 180.5 cm/s TR Mean Gradient 14.3 mmHg TR Velocity Time Integral 74.5 cm TV Peak E Velocity 62.0 cm/s PV Peak Velocity 88.0 cm/s RV Acceleration Time 0.1 s RV Ejection Time 0.3 s RV AcT/ET 0.2 FINDINGS Left Ventricle Normal left ventricular size, systolic function with no diagnostic regional wall motion abnormalities. Left ventricular ejection fraction is estimated at 60 %. Abnormal diastolic function. Abnormal septal motion consistent with conduction abnormality. Right Ventricle Normal right ventricular size and systolic function. Right Atrium Normal right atrial size. Left Atrium Normal left atrial size. Mitral Valve Mildly thickened mitral valve. No mitral valve stenosis. Trace mitral valve regurgitation. Aortic Valve Probably trileaflet aortic valve. No aortic valve stenosis. Mild aortic valve regurgitation. Tricuspid Valve Tricuspid valve not well visualized. Trace tricuspid valve regurgitation. Pulmonic Valve Pulmonic valve not well visualized. Pericardium No pericardial effusion. Prominent epicardial fat. Aorta Normal-sized aortic root and ascending aorta. CONCLUSIONS 1. This is a technically difficult study. 2. Normal left ventricular size, systolic function with no diagnostic regional wall motion abnormalities. Left ventricular ejection fraction is estimated at 60 %. Abnormal diastolic function. 3. Normal right ventricular size and systolic function. 4. Mild aortic valve regurgitation. 5. No prior similar studies to compare. Danuta Guzman MD (Electronically Signed) Final Date: 29 July 2021 19:00 S
[2021-07-29 06:44] LABS: Glucose Point of Care 114 mg/dL (70-110)
[2021-07-29] MEDS: propafenone 150 mg Tablet PO (08:59)
[2021-07-29] MEDS: levothyroxine 175 mcg Tablet PO (08:59)
[2021-07-29] MEDS: metoprolol tartrate 25 mg Tablet PO (09:00)
[2021-07-29] MEDS: fenofibrate 145 mg Tablet PO (09:00)
[2021-07-29] MEDS: famotidine 20 mg Tablet PO (09:00)
[2021-07-29] MEDS: clopidogrel 75 mg Tablet PO (09:00)
[2021-07-29] MEDS: aspirin 81 mg EC Tablet PO (09:00)
--- NOTE | 2021-07-29 09:26 | PC.CHAP ---
Pastoral Care Encounter/Spiritual Assessment Type of Contact [] Declined bradder visit [] Patient/Family/Request visit [] Outpatient visit [] Follow-up visit [] Physician referral [] Code/Alert x[] Routine visit [] Staff referral [] Actively dying [] Patient sleeping [] Family support [] [] Out of room [] Palliative care [] [x] Receiving care in room [] Pre-surgical visit [] Trauma [] Long length of stay [] ICU visit [] Other: Relational/Emotional Strength [] Patient feels connected with others/family/visitors/staff [] Distress [] Loneliness/isolation [] Abandonment Spirituality of Patient [] Person of Shakira [] Attends Jew of their Shakira [] Believes in Prayer [] Reads Bible or Catholic materials [] There are Spiritual issues to be addressed Utilities Equipment Repairer Interventions [] Prayer [] Active listening [] Non-anxious presence [] Spiritual/emotional support [] Crisis/trauma care [] Spiritual counseling [] Bereavement support [] Provided bereavement packet [] Provided Bible/devotional materials [] Provided toy/stuffed animal, coloring book to patient or family member [] Provided Communion [] Anointing/[place] [] Salvation [x] Completed spiritual assessment [] Other: Impact on Illness or Injury [] Angry [] Fearful [] Anxious [] Often cries [] Exhaustion [] Unable to work [] Unable to attend pentecostal [] Unable to walk/stand [] Unable to read [] Unable to drive [] Unable to eat/drink [] Unable to sleep [] Unable to be with family [] Patient intubated [] Other: Summary Time spent with patient
[2021-07-29] MEDS: enoxaparin 40 mg/0.4 mL Syringe SUBCUT (09:51)
--- NOTE | 2021-07-29 10:00 | FL_ITS ---
WS: [id number] Modified barium swallow, 07/29/2021 Clinical Data: Oropharyngeal dysphagia Comparison: None. Fluoroscopy time: 3.9 minutes. Findings: The patient had good oral preparation and functioning with minimal difficulty swallowing pudding. The pharyngeal phase showed no penetration or aspiration. There was good function and only minimal hawthorne cular pooling. There is delayed esophageal emptying with poor esophageal motility. FL/FL barium swallow modifd [id number] Impression: 1. Good oral and pharyngeal function. 2. Delayed esophageal emptying with poor motility.
[2021-07-29 11:52] LABS: Glucose Point of Care 132 mg/dL (70-110)
--- NOTE | 2021-07-29 14:14 | P.DS_ITS ---
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: Status: Chronic Permanent problem details: per patient on 07/28/2021 (6) Arrhythmia: Status: Chronic Permanent problem details: on rythmol and has pacemaker but does not recognize terms atrial fibrillation or atrial flutter Qualifiers: Arrhythmia type: unspecified cardiac arrhythmia Qualified Code(s): I49.9 - Cardiac arrhythmia, unspecified (7) Borderline diabetes: Status: Chronic Permanent problem details: with episodes of hypoglycemia (8) Hyperlipidemia: Status: Chronic Qualifiers: Hyperlipidemia type: unspecified Qualified Code(s): E78.5 - Hyperlipidemia, unspecified (9) Hypertension: Status: Chronic Qualifiers: Hypertension type: essential hypertension Qualified Code(s): I10 - Essential (primary) hypertension Reason for Visit Reason for Visit: STROKE ALERT Hospital Course Hospital Course Pleasant 76-year-old lady with history of HTN, HLD, HUMBERTO, recently stopped using BiPAP, history of atrial tachycardia, PPM, obesity, recently some symptoms of dysphagia, history of gastritis, hiatal hernia, was admitted for cyst management due to slurred speech, facial droop, possibly some leg weakness, although this was felt related more to chronic arthritis. She presented outside the window for TPA. She states she was recently started on aspirin prehospitalization, but had not been taking it for very long. She was continued aspirin here, started also on Plavix. She reported intolerance to a number of different statins in the past. CT head showed incidental finding of possible meningioma in the lower anterior cranial fossa. This may need additional short-term reimaging in [address] angiogram head and neck were obtained, with finding of focal moderate to marked narrowing distal M1 segment of right MCA, suspected to be distal right MCA CVA as per neurology assessment. In the neck no high-grade stenosis or occlusive disease is noted. Incidentally seen prominent lymph nodes raising consideration of neoplastic process or systemic inflammatory process. She was monitored in the hospital on telemetry. TTE was obtained as well, results are currently pending. Neurology is recommending exclusion of intrac ardiac source of embolus. She is additionally referred for a MALINDA. She has done very well otherwise. HE program is recommended by PT. is requested for speech therapy since she does not drive nor does her . She is continued on aspirin, Plavix for now for 21 days, is asked to follow-up with neurology in office. She is started on simvastatin. She does not remember that it is one of the medication she had tried before. She seems to have had intolerance to other statins. She is wanting to try this medication, however, I discussed with her to check against the list she keeps at home to see if it was one that she had tried before. She is aware to talk to her doctor in case she gets any symptoms that again may suggest intolerance. Please continue to optimize hypertension, prediabetes. Please help her with weight loss. Please assist her with return to use of nightly BiPAP. At hospitalization she also reported having her medications getting stuck in her throat/chest on the way down over the last week or so. She was assessed by speech therapy, MBS, without noted aspiration, but with noted esophageal dysmotility with delayed esophageal emptying. Hiatal hernia. She is continued on amlodipine, dose is increased to 10 mg to help control hypertension. She will try peppermint oil. With regards to hiatal hernia, reports history of this. If persistent/bothersome symptoms, consider referral to surgery for additional assessment. She reports also history of gastritis. Due to this is started on PPI. Please consider assessment for H. pylori as well as referral for endoscopic assessment. Please follow-up also regarding possible meningioma and lower anterior cranial fossa, consider reimaging in 3 months. Please follow-up regarding incidentally noted prominent lymph nodes in th neck/upper chest. Physical Exam Const: COMMON NORMALS: no acute distress and patient oriented x3 OTHER: Awake, alert, pleasant, conversant. HENMT: COMMON NORMALS: oropharynx normal Neck/C-Spine: COMMON NORMALS: no meningeal signs and no JVD Resp: COMMON NORMALS: normal respiratory effort and clear to auscultation bilaterally AUSCULTATION: clear to auscultation bilaterally Cardio: COMMON NORMALS: no JVD, regular rhythm, S1 normal heart sound present, S2 normal heart sound present and No murmurs present (Cardio) RHYTHM: regular rhythm HEART SOUNDS: S1 normal heart sound present and S2 normal heart sound present GI: COMMON NORMALS: Normal to inspection, nondistended, normoactive bowel sounds present, Soft to palpation and non-tender PALPATION: Yes Soft to palpation Extremity: COMMON NORMALS: no joint enlargement and no pedal edema Neuro: COMMON NORMALS: patient oriented x3 and moves all extremities ME NINGEAL SIGNS: Yes no meningeal signs COORDINATION/BALANCE: [id number] test normal (although slow) SPEECH: abnormal speech Details: slurred (Minimal if any dysarthria.) and expressive aphasia (minimal aphasia) SENSORY EXAM: Yes Normal double simultaneous stimulation for sensation; No sensory level loss detected MOTOR EXAM: 5/5 motor strength present throughout and Pronator mot or function not present COORDINATION: [id number] test normal (although slow) OTHER: No difficulty tracking. No visual field deficits to confrontation. Minimal left-sided facial droop. Skin: COMMON NORMALS: no rashes or lesions noted GENERAL SKIN EXAM: no rashes or lesions noted Urinary Catheter Management^: Harris: Cath Placed During This Visit: yes, but has since been removed by the nurse Reason for Continuing Indwelling Catheter: Decision to DC Catheter Urinary Catheter Date of Insertion: 07/28/21 Urinary Catheter Time of Insertion: 03:33 Date Urinary Catheter Removed: 07/28/21 Time Urinary Catheter Discontinued: 13:00 Discharge Data Data Completed and Pending: Completed Studies During Hospitalization Category Date Time Status CT angio headneck * [id number] Urge nt Cat Scan 07/28/21 02:[address] head wo con* 7 0450 Urgent Cat Scan 07/28/21 02:51 Completed FL barium swallow modifd [id number] Rout ine Exams 07/29/21 10:00 Completed Pending at discharge Category Date Time Status CV. echo complete * [id number] Routine Ultrasound 07/29/21 06:00 Taken Labs from last 24 hours 07/29/21 07/29/21 07/29/21 11:24 06:40 03:07 WBC RBC Hgb Hct MCV MCH MCHC RDW Plt Count MPV Neut % (Auto) Lymph % (Auto) [place] % (Auto) Eos % (Auto) Baso % (Auto) Neut # (Auto) Lymph # (Auto) [place] # (Auto) Eos # (Auto) Baso # (Auto) Nucleated RBC % (a uto) Nucleated RBCs # Sodium Potassium Chloride Carbon Dioxide Anion Gap BUN Creatinine GFR Calculation Glucose POC Glucose 132 H 114 H Estimat Average Gl ucose Hemoglobin A1c Calculated Osmolal ity Calcium Phosphorus Magnesium Triglycerides 133 Cholesterol 185 LDL Cholesterol, C alc 123 HDL Cholesterol 35 L LDL/HDL Ratio 3.51 H Cholesterol/HDL Ra humaira 5.29 H TSH 07/29/21 07/29/21 07/29/21 03:07 03:07 03:07 WBC 6.2 RBC 4.49 Hgb 14.0 Hct 41.2 MCV 91.8 MCH 31.2 MCHC 34.0 RDW 12.2 Plt Count 168 MPV 9.3 Neut % (Auto) 47.0 Lymph % (Auto) 37.7 [place] % (Auto) 14.1 Eos % (Auto) 0.2 Baso % (Auto) 0.5 Neut # (Auto) 2.94 Lymph # (Auto) 2.4 [place] # (Auto) 0.9 Eos # (Auto) 0.0 Baso # (Auto) 0.0 Nucleated RBC % (a uto) 0 Nucleated RBCs # 0.0 Sodium 135 L Potassium 3.9 Chloride 101 Carbon Dioxide 25 Anion Gap 12.9 BUN 8 Creatinine 0.6 GFR Calculation Not Reportable Glucose 103 POC Glucose Estimat Average Gl ucose 114 Hemoglobin A1c 5.6 Calculated Osmolal ity 279 L Calcium 9.1 Phosphorus 3.6 Magnesium 1.9 Triglycerides Cholesterol LDL Cholesterol, C alc HDL Cholesterol LDL/HDL Ratio Cholesterol/HDL Ra humaira TSH 1.10 07/28/21 07/28/21 20:27 17:04 WBC RBC Hgb Hct MCV MCH MCHC RDW Plt Count MPV Neut % (Auto) Lymph % (Auto) [place] % (Auto) Eos % (Auto) Baso % (Auto) Neut # (Auto) Lymph # (Auto) [place] # (Auto) Eos # (Auto) Baso # (Auto) Nucleated RBC % (a uto) Nucleated RBCs # Sodium Potassium Chloride Carbon Dioxide Anion Gap BUN Creatinine GFR Calculation Glucose POC Glucose 130 H 107 Estimat Average Gl ucose Hemoglobin A1c Calculated Osmolal ity Calcium Phosphorus Magnesium Triglycerides Cholesterol LDL Cholesterol, C alc HDL Cholesterol LDL/HDL Ratio Cholesterol/HDL Ra humaira TSH Vitals: Last Vital Signs Temp 98.0 F 07/29/21 12:03 Pulse 63 07/29/21 12:03 Resp 19 H 07/29/21 12:03 BP 133/77 07/29/21 12:03 Pulse Ox 94 07/29/21 12:03 Discharge Plan Discharge Patient Disposition: Home Health Service Condition: Stable Prescriptions: New clopidogrel 75 mg Tablet 75 mg PO DAILY Qty: 21 RF: 0 simvastatin 10 mg tablet 10 mg PO QPM Qty: 30 RF: 0 pantoprazole 40 mg tablet,delayed release (DR/EC) 40 mg PO DAILY 42 Days Qty: 42 RF: 0 Continued levothyroxine 175 mcg Tablet 175 mcg PO DAILY RF: 0 aspirin [Aspirin Low Dose] 81 mg Tablet,Delayed Release (Dr/Ec) 81 mg PO DAILY RF: 0 famotidine [Pepcid] 20 mg Tablet 20 mg PO BID RF: 0 propafenone 225 mg Tablet 225 mg PO BID RF: 0 metoprolol tartrate 50 mg Tablet 50 mg PO BID RF: 0 furosemide [Lasix] 20 mg Tablet 20 mg PO DAILY RF: 0 Changed amlodipine 5 mg tablet 10 mg PO DAILY Qty: 30 RF: 0 Discharge Orders: Discharge Order (Routine); Ordered 07/29/21 Ordered By: Taras Chaney Other Ambulatory Orders: CV. echo transesophageal [id number] (Routine) Timeframe: 1 Week Location: [facility] Ordered By: Taras Chaney Referrals: Fara Young MD [Physician] - 08/04/21 3:30 pm (CVA) John Espinoza [Referring] - 08/06/21 9:00 am (CVA, esophageal dysphagia, esophageal dysmotility, hiatal hernia) Discharge Diet: Cardiac and Diabetic Discharge Activity: Increase activity as tolerated and As per PT/OT instructions Patient Instructions: Diabetes and Diet, Simvastatin (By mouth), Clopidogrel (By mouth), Pantoprazole (By mouth), Sleep Apnea Syndrome (GEN), Hiatal Hernia (GEN), Ischemic Stroke (GEN), Chronic Hypertension (GEN), Obesity (GEN), Esophageal Spasm (GEN) Activity Restrictions/Additional Instructions: Please follow-up with your primary care doctor, neurologist after your stroke. Continue to use aspirin. Please note you are also started on Plavix, this will be continued for 21 days, unless suggested by your neurologist. Please note that both aspirin and Plavix increase your risk of bleeding. Avoid any injury at any cost. If you develop severe bleeding, hold medications and seek medical attention immediately. Please note you are also started as per discussion on cholesterol medication with simvastatin. Please check to see if this is one of the medications that you had taken before and did not tolerate. If it is, please do not fill the prescription as discussed, and speak with your primary doctor regarding additional options. Please continue to monitor blood pressures at home 3 times daily, write down values to bring to your appointment. Continue to work with your primary doctor to optimize blood pressure control since it is a risk factor for stroke. Please also use the CPAP/BiPAP machine for sleep apnea. Untreated sleep apnea will lead to elevated blood pressures, and may additionally lead to elevated risk of stroke. Please discuss with your primary doctor, as well as with neurologist at the visit regarding possible meningioma and lower anterior cranial fossa. Discussed short-term follow-up to be done in 3 months to exclude growth in size. Please follow-up with your primary doctor also with regards to esophageal dysmotility and dysphagia symptoms that you have been experiencing recently with swallowing. Please also discuss with them regarding hiatal hernia. Revisit also regarding history of inflammation in your stomach. Please discuss testing for H. pylori. Please follow-up with your food and beverage manager with regards to atrial tachycardia and reassessment of pacemaker which may need to change of the generator. Discharge Attestations Time Spent in Discharge Care*: greater than 30 min Quality Metrics Clinical Quality Measures During this hospital stay, did patient experience: Stroke Contraindication to Antithrombotic: Antithrombotic prescribed Contraindication to Anticoagulation: Overlap treatment not indicated Contraindication to Statin: Statin prescribed Coding Level of Care Code Acute [facility] note Diagnoses Right middle cerebral artery stroke I63.511 Body mass index (BMI) of 40.1 to 44.9 in adult Z68.41 History of bilevel positive airway pressure (BiPAP) therapy Z92.89 Sleep apnea G47.33 Sleep apnea type: obstructive Pacemaker at end of battery life Z45.010 Arrhythmia I49.9 Arrhythmia type: unspecified cardiac arrhythmia Borderline diabetes R73.03 Hyperlipidemia E78.5 Hyperlipidemia type: unspecified Hypertension I10 Hypertension type: essential hypertension
[2021-07-29 16:57] LABS: Glucose Point of Care 118 mg/dL (70-110)
--- NOTE | 2021-07-31 11:33 | PC.SOCIAL ---
spoke with [facility] and they will be going to patients home today to evaluate and do their assessment to begin home health and speech therapy. Also spoke with cardiology in [place], pts entry manager office, Dr. Elizondo. They are getting MALINDA set up and follow up appointment. Spoke with pts daughter, Alejandra and gave her these updates.
== END 2021-07-29 17:09 | disposition home health service (06) | DRG 65 ==
LOC: ER 04:31 → MEDSURG 05:48
PROVIDERS: Admitting Provider Hospitalist; Emergency Provider Emergency Medicine; Visit Provider Internal Medicine
DX: I63.511 Cerebral infarction due to unspecified occlusion or stenosis of right middle cerebral artery (principal); Z68.41 Body mass index [BMI] 40.0-44.9, adult; R47.81 Slurred speech; R29.810 Facial weakness; R13.10 Dysphagia, unspecified; K44.9 Diaphragmatic hernia without obstruction or gangrene; K29.70 Gastritis, unspecified, without bleeding; I10 Essential (primary) hypertension; R29.704 NIHSS score 4; I49.9 Cardiac arrhythmia, unspecified; E78.5 Hyperlipidemia, unspecified; G47.33 Obstructive sleep apnea (adult) (pediatric); E03.9 Hypothyroidism, unspecified; R73.03 Prediabetes; E16.2 Hypoglycemia, unspecified; E66.9 Obesity, unspecified; Z99.89 Dependence on other enabling machines and devices; Z79.82 Long term (current) use of aspirin; Z45.018 Encounter for adjustment and management of other part of cardiac pacemaker
CPT/HCPCS: 36415; 36416; 51702; 70450; 70496; 70498; 74230; 80048; 80053; 80061; 81003; 82962; 83036; 83735; 84100; 84443; 85025; 85610; 85730; 92523; 92610; 92611; 93005; 93306; 96360; 96372; 97116; 97161; 99285; J1650; J7030; Q9967

== ENCOUNTER → 2021-08-04 15:20 | Outpatient (BNVA) | payer MEDICARE, SELFPAY | PROVIDERS: PCP Family Medicine; Referring Provider Internal Medicine; Visit Provider Specialist | DX: F41.9 Anxiety disorder, unspecified (principal); Z86.73 Personal history of transient ischemic attack (TIA), and cerebral infarction without residual deficits; Z92.89 Personal history of other medical treatment; Z95.0 Presence of cardiac pacemaker | CPT/HCPCS: 99205 ==

== ENCOUNTER → 2023-11-18 08:12 | Outpatient (BNVA) | payer MEDICARE, SELFPAY | PROVIDERS: PCP Family Medicine; Visit Provider Podiatrist Foot & Ankle Surgery | DX: L60.8 Other nail disorders (principal); B35.1 Tinea unguium | CPT/HCPCS: 99203 ==

== ENCOUNTER → 2024-01-10 13:52 | Outpatient (BNVA) | payer MEDICARE, SELFPAY | PROVIDERS: PCP Family Medicine; Visit Provider Nurse Practitioner Family | DX: L57.0 Actinic keratosis (principal); L82.1 Other seborrheic keratosis; L82.0 Inflamed seborrheic keratosis; L85.3 Xerosis cutis; D22.5 Melanocytic nevi of trunk; D48.5 Neoplasm of uncertain behavior of skin; Z85.828 Personal history of other malignant neoplasm of skin | CPT/HCPCS: 11102; 17000; 17110; 99213 ==

== ENCOUNTER → 2024-02-01 08:59 | Outpatient (BNVA) | payer MEDICARE, SELFPAY | PROVIDERS: PCP Family Medicine; Visit Provider Dermatology | DX: D03.62 Melanoma in situ of left upper limb, including shoulder (principal); D22.5 Melanocytic nevi of trunk | CPT/HCPCS: 11602; 11603; 12034 ==

== ENCOUNTER → 2024-02-13 09:46 | Outpatient (BNVA) | payer MEDICARE, SELFPAY | PROVIDERS: PCP Family Medicine; Visit Provider Dermatology | DX: Z48.02 Encounter for removal of sutures (principal) | CPT/HCPCS: 99212 ==